=== PATIENT | male | born 1935 | race Hispanic/Latino ===

== ENCOUNTER 2025-10-27 06:50 | Day surgery (SDC) | payer OTHER ==
--- NOTE | 2025-10-21 13:29 | EKG ---
[facility] Test Date: 2025-10-21 Test Time: 13:22:53 Pat Name: ARGENIS BERMUDEZ Department: [facility] Room: Gender: [employer] Principal: [id number] : 1935 Requested By: BEN MEYER Order Number: [id number] Reading MD: Zoltan Johnston Measurements Intervals Willis Rate: 54 P: 51 MD: 158 QRS: -27 QRSD: 144 T: 4 QT: 428 QTc: 407 Interpretive Statements Sinus rhythm Right bundle branch block No previous ECG available for comparison Electronically Signed On 10-21-2025 16:16:54 [employer] by Zoltan Johnston Please click the below link to view image of tracing.
[2025-10-21 13:37] VITALS: BP 147/53; PULSE 57; RESP 17; TEMP 97.9
[2025-10-21 13:43] LABS: IMMATURE GRANULOCYTE ABSOLUTE 0.01 K/uL (0-1); NUCLEATED RED BLOOD CELLS 0.0 % (0.0-0.19); PLATELET COUNT (AUTO) 149 K/uL (130-400); RED BLOOD CELL COUNT(AUTO) 3.48 MIL/uL (4.50-6.20); RED CELL DISTRIBUTION WIDTH 13.9 % (11.0-15.5); WHITE BLOOD COUNT (AUTO) 4.5 K/uL (4.8-10.8)
[2025-10-21 13:47] LABS: CREATININE 1.5 mg/dL (0.5-1.3); GLOMERULAR FILTR. RATE CALC 45.0 mL/min (>90); GLUCOSE,RANDOM 86.0 mg/dL (70-105); SODIUM SERUM 140.0 mmol/L (136-145); UREA NITROGEN, BLOOD 22.0 mg/dL (7-18)
[2025-10-21 13:49] LABS: INR 0.96 (0.85-1.15)
--- NOTE | 2025-10-24 09:41 | NUR ---
REPORT REPORTED H&H TO DR MEYER. OK TO PROCEED EKG REPORTED TO DR MEYER. OK TO PROCEED
[~2025-10-27] VITALS: Ht 170.2 cm; Wt 57.5 kg
[2025-10-27] VITALS (16 sets, daily range): BP systolic 125–145; BP diastolic 44–67; PULSE 57–91; RESP 14–17; TEMP 97.3–97.6
[~2025-10-27 06:50] MED LIST: AMLO-257 PO; LISI10TA24 PO; TAMS-55 PO
[2025-10-27] MEDS ORDERED: LIDOCAINE PF 100MG/5ML (2%) SYRINGE 5ML ONE (06:51)
[2025-10-27] MEDS ORDERED: GLYCOPYRROLATE 0.2 MG/ML 5 ML VIAL ONE (08:10)
[2025-10-27] MEDS: LACTATED RINGERS 1000ML 1,000 ML IV ONE (08:40)
[2025-10-27] MEDS ORDERED: NEOSTIGMINE METHYLSULFATE 1MG/ML IV ONE (08:58)
[2025-10-27] MEDS ORDERED: PROMETHAZINE HCL 25 MG/ML 1ML AMPULE IM PRN (09:00)
--- NOTE | 2025-10-27 09:03 | OP ---
Operative Note: DATE OF PROCEDURE: 10/27/25 SURGEON: BEN MEYER MD IMMUNOLOGY SPECIALIST: [] ANESTHESIA: [] General ANESTHESIOLOGIST/HEATER PLANER OPERATOR: [] PREOPERATIVE DIAGNOSIS: [] Bilateral inguinal hernias POSTOPERATIVE DIAGNOSIS: [] The same SYNOPSIS: [] PROCEDURE: [] Robotic repair of bilateral inguinal hernias with mesh ESTIMATED BLOOD LOSS: [] Minimal INDICATIONS: [] DESCRIPTION OF PROCEDURE: [] With the patient prepped in usual fashion and a Murray catheter placed we ins erted the Veress needle in the left upper quadrant abdomen insufflated. Supraumbilical incision was created and a millimeter da Marco Antonio trocar was inserted. Under direct vision I remove the needle and I placed 2 da Marco Antonio trochars 1 in each the side of the abdomen. Then we placed the patient in Trendelenburg and I docked the robot. I went to the console and observe a bilateral inguinal hernia. Using cautery I scored the peritoneum in the right side and I brought him down bluntly. I exposed the Lenin's ligament and the indirect area I reduce a large hernia sac preserving the spermatic cords and visualizing the vas deferens and spermatic cords. The hernia was reduced without any problems. After observing the myopectineal line and the Lnein's ligament, I did the same maneuver in the left side. In the left side was able to appreciate an indirect indirect inguinal hernias. The hernia the sac in the lipoma were reduced. I placed a 3 D MAX MId mid mesh on both sides and they were the large meshes. I placed it over the Lenin's ligament covering couple centimeters below and the indirect space. The sac with the lipoma was placed ov er the mesh. I then closed the peritoneum with a 2 oh V-Loc 1st in the right side and then the left side. No anchoring of the mesh was necessary. We did a closure continues and dropped the pressure to 8 cm. After this was done I remove the needle and I remove all the trochars under direct vision. The skin was closed with 4-0 Monocryl and Dermabond. We placed 20 cc BEN MEYER MD Oct 27, 2025 09:03
--- NOTE | 2025-10-27 10:00 | NUR ---
dressing: dermabond x 3 to abdomen dry/intact with no redness/swelling noted to surrounding area. Addendum: 10/27/25 at 1049 by EMILIANA WORLEY RN RN dermabond x 4
--- NOTE | 2025-10-27 10:45 | NUR ---
dressing: dermabond x 4 to abdomen dry/intacgt with no active bleeding present. no redness/swelling noted to surrounding area.
== END 2025-10-27 10:50 | disposition home or self-care (01) ==
LOC: DAH 06:50
PROVIDERS: ATTEND Surgery
DX: K40.20 Bilateral inguinal hernia, without obstruction or gangrene, not specified as recurrent (principal); I10 Essential (primary) hypertension; E11.9 Type 2 diabetes mellitus without complications; K21.9 Gastro-esophageal reflux disease without esophagitis; E78.00 Pure hypercholesterolemia, unspecified; Z98.890 Other specified postprocedural states
CPT/HCPCS: 80048; 85025; 85610; 85730; 36415; 93005; 49650; A4223 ×2; A6260; S2900; A4663; J7030; A4344; A4215 ×2; J7120; J3010 ×2; J0665 ×2; J3490 ×3; J2003; J2704; J2405; J2710; J2371; J0690 ×2; A4930 ×2; C1781 ×2; A4213; A4222; A4221; A4216; A4450